=== PATIENT | female | born 1940 | race Caucasian/White ===

== ENCOUNTER 2020-12-05 03:57 | Inpatient (IN) | payer MEDICARE ==
[2020-12-05] MEDS ORDERED: Norepinephrine 8 MG/0.9% NS 250 ML ONE (04:48)
[2020-12-05] MEDS ORDERED: Protamine Sulfate 50 MG/5 ML VIAL ONE (05:10)
[2020-12-05] MEDS ORDERED: Heparin 5,000 UNITS/ML VIAL ONE (05:10)
[2020-12-05] MEDS ORDERED: Bupivacaine PF 0.5% 30 ML VIAL ONE (05:10)
[2020-12-05] MEDS ORDERED: EPINEPHrine 1 MG/ML AMP ONE (05:10)
[2020-12-05] MEDS ORDERED: Fentanyl 100 MCG/2 ML VIAL ONE ×2 (05:26→08:15)
[2020-12-05] MEDS ORDERED: Calcium Chloride 1 GM/10 ML Abboject SYRINGE ONE (05:26)
[2020-12-05] MEDS ORDERED: Norepinephrine 4 MG/4 ML VIAL ONE (05:26)
[2020-12-05] MEDS ORDERED: Phenylephrine 10 MG/ML VIAL ONE (05:26)
[2020-12-05] MEDS ORDERED: Rocuronium Bromide 10 MG/ML (10ML VIAL) ONE (05:37)
[2020-12-05] MEDS ORDERED: Labetalol HCl 100 MG/20 ML VIAL ONE ×2 (05:37→07:13)
[2020-12-05] MEDS ORDERED: Lidocaine 1% PF 5 ML VIAL ONE (05:37)
[2020-12-05] MEDS ORDERED: Levofloxacin 500 mg/D5W 100 ml Premix Bag ONE (05:53)
[2020-12-05] MEDS ORDERED: Sodium Bicarb 50 MEQ/50 ML Abboject 8.4% SYRINGE ONE (06:06)
[2020-12-05] MEDS ORDERED: SUGAMMADEX SODIUM 200 MG/2 ML VIAL ONE (06:46)
[2020-12-05] MEDS ORDERED: Lactated Ringer's 1,000 ML IV SCH (07:15)
[2020-12-05] MEDS ORDERED: Ondansetron PF 4 MG/2 ML Vial ONE ×2 (07:20→08:01)
[2020-12-05] MEDS ORDERED: hydrALAZINE 20 MG/ML VIAL SLOW IVP PRN (07:30)
[2020-12-05] MEDS ORDERED: hydrALAZINE 20 MG/ML VIAL ONE (07:30)
[2020-12-05] MEDS ORDERED: Sodium Chloride 0.9% 10 ML ONE (07:31)
[2020-12-05] MEDS ORDERED: Carvedilol 6.25 MG TAB PO SCH (08:00)
[2020-12-05 08:07] LABS: Hemoglobin 11.1 g/dL (12.0-16.0); Mean Corpuscular HGB CONC 33.8 g/dL (32.0-36.0); Mean Corpuscular Hemoglobin 30.8 pg (27.0-31.0); Mean Corpuscular Volume 91.3 fL (78.0-98.0); Platelet Count 159 thou/uL (130-400); RBC Distribution Width 14.6 % (11.5-14.5); Red Blood Cell (RBC) Count 3.61 mill/uL (4.20-5.40); White Blood Cell (WBC) Count 17.3 thou/uL (4.8-10.8)
[2020-12-05 08:18] LABS: INR-International Normal Ratio 1.7; PTT 35.6 sec (22.9-36.1); Prothrombin Time 19.8 sec (12.0-14.7)
[2020-12-05 08:25] LABS: Anion Gap 17 mmol/L (10-20); Anisocytosis SLIGHT = 6-15 cells (100X) (0-5/hpf); BUN (Urea Nitrogen) 28 mg/dL (9.8-20.1); Band 2 % (5-11); Calc. Creatinine Clearance 0 mL/min (70-130); Calcium 6.7 mg/dL (7.8-10.44); Carbon Dioxide 15 mmol/L (23-31); Chloride 112 mmol/L (98-107); Glucose 179 mg/dL (83-110); Large Platelets SLIGHT; Lymphocytes 8 % (21-51); MDiff Complete? YES; Monocytes 6 % (0-10); Neutrophil 84 % (42-75); Platelet Morphology Comment Appears Adequate; Potassium 4.3 mmol/L (3.5-5.1); Sodium 140 mmol/L (136-145); Vacuoles SLIGHT
[2020-12-05] MEDS ORDERED: Ketorolac Tromethamine 30 MG/ML VIAL ONE (08:54)
[2020-12-05] MEDS ORDERED: Lisinopril 20 MG TAB PO SCH ×2 (09:00)
[2020-12-05] MEDS ORDERED: Ondansetron PF 4 MG/2 ML Vial IVP PRN (09:41)
[2020-12-05] MEDS ORDERED: Aspirin 81 mg Enteric Coated Tablet PO SCH (10:00)
[2020-12-05] MEDS ORDERED: Citalopram 20 MG TAB PO SCH (10:00)
[2020-12-05] MEDS ORDERED: Polyethylene Glycol 3350 17 GM Packet PO SCH (10:00)
[2020-12-05] MEDS ORDERED: Carvedilol 3.125 MG TAB PO SCH ×2 (10:00→17:00)
[2020-12-05] MEDS ORDERED: Levothyroxine Sodium 75 MCG TAB PO SCH (10:00)
[2020-12-05 11:08] LABS: Hemoglobin 11.5 g/dL (12.0-16.0); Platelet Count 73 thou/uL (130-400)
[2020-12-05] MEDS: Acetaminophen 325 MG TAB PO PRN (11:12)
[2020-12-05 12:41] LABS: Hemoglobin 11.8 g/dL (12.0-16.0); Platelet Count 176 thou/uL (130-400)
[2020-12-05] MEDS: Lactated Ringer's 1,000 ML IV SCH (18:12)
[2020-12-05 19:32] LABS: Hemoglobin 9.3 g/dL (12.0-16.0); Platelet Count 183 thou/uL (130-400)
[2020-12-05] MEDS: Atorvastatin Calcium 40 MG TAB PO SCH (21:27)
[2020-12-06 04:59] LABS: Band 7 % (5-11); Lymphocytes 5 % (21-51); MDiff Complete? YES; Mean Corpuscular HGB CONC 35.4 g/dL (32.0-36.0); Mean Corpuscular Hemoglobin 31.3 pg (27.0-31.0); Mean Corpuscular Volume 88.4 fL (78.0-98.0); Mean Platelet Volume 9.3 fL (7.4-10.4); Monocytes 11 % (0-10); Neutrophil 77 % (42-75); Platelet Count 169 thou/uL (130-400); Platelet Morphology Comment Appears Adequate; RBC Distribution Width 17.2 % (11.5-14.5)
[2020-12-06 05:03] LABS: Anion Gap 15 mmol/L (10-20); BUN (Urea Nitrogen) 32 mg/dL (9.8-20.1); Calc. Creatinine Clearance 22 mL/min (70-130); Calcium 6.9 mg/dL (7.8-10.44); Carbon Dioxide 15 mmol/L (23-31); Chloride 109 mmol/L (98-107); Glucose 77 mg/dL (83-110); Potassium 3.9 mmol/L (3.5-5.1); Sodium 135 mmol/L (136-145)
[2020-12-06] MEDS: Levothyroxine Sodium 75 MCG TAB PO SCH (05:11)
[2020-12-06] MEDS ORDERED: TICAGRELOR 90 MG TABLET PO SCH ×2 (09:00→21:00)
[2020-12-06] MEDS: Citalopram 20 MG TAB PO SCH (09:02)
[2020-12-06] MEDS: Furosemide 40 MG TAB PO SCH (09:02)
[2020-12-06] MEDS: Carvedilol 3.125 MG TAB PO SCH ×2 (09:03→18:32)
[2020-12-06] MEDS: Aspirin 81 mg Enteric Coated Tablet PO SCH (09:03)
[2020-12-06] MEDS: Polyethylene Glycol 3350 17 GM Packet PO SCH (09:04)
[2020-12-06] MEDS: Clopidogrel Bisulfate 75 MG TAB PO SCH (09:09)
[2020-12-06] MEDS: BEER 1 CAN PO SCH (10:31)
[2020-12-06 17:19] LABS: Hemoglobin 9.4 g/dL (12.0-16.0); Platelet Count 173 thou/uL (130-400)
[2020-12-06] MEDS: Lactated Ringer's 1,000 ML IV SCH (18:32)
[2020-12-06] MEDS: Mometasone 100 MCG/PUFF (1 INHALER) INH SCH (18:33)
[2020-12-06] MEDS: Atorvastatin Calcium 40 MG TAB PO SCH (20:32)
[2020-12-07 04:50] LABS: Anion Gap 9 mmol/L (10-20); BUN (Urea Nitrogen) 23 mg/dL (9.8-20.1); Calc. Creatinine Clearance 30 mL/min (70-130); Calcium 7.5 mg/dL (7.8-10.44); Carbon Dioxide 24 mmol/L (23-31); Chloride 106 mmol/L (98-107); Glucose 78 mg/dL (83-110); Potassium 3.7 mmol/L (3.5-5.1); Sodium 135 mmol/L (136-145)
[2020-12-07] MEDS: Levothyroxine Sodium 75 MCG TAB PO SCH (05:14)
[2020-12-07 05:20] LABS: Band 4 % (5-11); Hemoglobin 9.4 g/dL (12.0-16.0); Lymphocytes 5 % (21-51); MDiff Complete? YES; Mean Corpuscular Hemoglobin 30.5 pg (27.0-31.0); Mean Corpuscular Volume 89.5 fL (78.0-98.0); Monocytes 9 % (0-10); Neutrophil 81 % (42-75); Platelet Count 189 thou/uL (130-400); Platelet Morphology Comment Appears Adequate; RBC Distribution Width 17.4 % (11.5-14.5); RBC Morphology Normal; Reactive Lymphocytes 1 % (0-10); Red Blood Cell (RBC) Count 3.09 mill/uL (4.20-5.40); White Blood Cell (WBC) Count 27.7 thou/uL (4.8-10.8)
[2020-12-07] MEDS: HYDROcodone/Acetaminophen 5/325 mg Tablet PO PRN (09:05)
[2020-12-07] MEDS: Carvedilol 6.25 MG TAB PO SCH ×2 (09:05→16:07)
[2020-12-07] MEDS: Aspirin 81 mg Enteric Coated Tablet PO SCH (09:05)
[2020-12-07] MEDS: Furosemide 40 MG TAB PO SCH (09:05)
[2020-12-07] MEDS: Lisinopril 5 MG TAB PO SCH ×2 (09:05→20:24)
[2020-12-07] MEDS: Citalopram 20 MG TAB PO SCH (09:05)
[2020-12-07] MEDS: Polyethylene Glycol 3350 17 GM Packet PO SCH (09:07)
[2020-12-07] MEDS: Clopidogrel Bisulfate 75 MG TAB PO SCH (09:07)
[2020-12-07] MEDS: BEER 1 CAN PO SCH ×2 (09:08→15:50)
[2020-12-07] MEDS: Mometasone 100 MCG/PUFF (1 INHALER) INH SCH ×2 (11:11→19:39)
[2020-12-07 16:06] LABS: Bilirubin Negative (Negative); Blood, Urine 2+ (Negative); Clarity Turbid (Clear); Glucose, Urine (Dipstick) Normal (Negative); Ketone, Urine Negative (Negative); Leukocyte 500 Leu/uL (Negative); Nitrite Negative (Negative); Protein, Urine (Dipstick) 10 mg/dL (Neg-Trace); Renal Epithelial 0-3 HPF (None Seen); Specific Gravity, Urine 1.013 (1.002-1.036); Urobilinogen Normal mg/dL (Less than 2)
[2020-12-07 16:14] LABS: Bacteria/HPF 1+ HPF (None Seen); Squamous Epithelial 0-3 HPF (0-3); WBC/HPF 21-50 HPF (0-3)
[2020-12-07 16:16] LABS: Urine Culture Reflex Yes Yes
[2020-12-07] MEDS: Atorvastatin Calcium 40 MG TAB PO SCH (20:24)
[2020-12-07] MEDS: Simethicone Chewable 80 MG TAB PO PRN (21:44)
[2020-12-08] MEDS: Levothyroxine Sodium 75 MCG TAB PO SCH (06:04)
[2020-12-08] MEDS: Mometasone 100 MCG/PUFF (1 INHALER) INH SCH ×2 (08:16→19:02)
[2020-12-08 08:35] LABS: Hemoglobin 8.8 g/dL (12.0-16.0); Mean Corpuscular HGB CONC 34.2 g/dL (32.0-36.0); Mean Corpuscular Hemoglobin 31.1 pg (27.0-31.0); Mean Platelet Volume 9.2 fL (7.4-10.4); Platelet Count 212 thou/uL (130-400); Red Blood Cell (RBC) Count 2.83 mill/uL (4.20-5.40)
[2020-12-08 08:50] LABS: Anion Gap 12 mmol/L (10-20); BUN (Urea Nitrogen) 19 mg/dL (9.8-20.1); Calc. Creatinine Clearance 35 mL/min (70-130); Calcium 7.6 mg/dL (7.8-10.44); Carbon Dioxide 22 mmol/L (23-31); Chloride 102 mmol/L (98-107); Potassium 3.5 mmol/L (3.5-5.1); Sodium 132 mmol/L (136-145)
[2020-12-08 08:53] LABS: Glucose 53 mg/dL (83-110)
[2020-12-08] MEDS: Clopidogrel Bisulfate 75 MG TAB PO SCH (08:59)
[2020-12-08] MEDS: Aspirin 81 mg Enteric Coated Tablet PO SCH (08:59)
[2020-12-08] MEDS: Carvedilol 6.25 MG TAB PO SCH ×2 (08:59→17:43)
[2020-12-08] MEDS: Lisinopril 5 MG TAB PO SCH ×2 (09:00→20:47)
[2020-12-08] MEDS: cefTRIAXone\\ROCEPHIN 1 GM in Sodium Chloride 0.9% 100 ML IVPB SCH (09:00)
[2020-12-08] MEDS: Citalopram 20 MG TAB PO SCH (09:00)
[2020-12-08] MEDS: Furosemide 40 MG TAB PO SCH (09:00)
[2020-12-08] MEDS: BEER 1 CAN PO SCH (09:01)
[2020-12-08] MEDS: Polyethylene Glycol 3350 17 GM Packet PO SCH (09:01)
[2020-12-08] MEDS ORDERED: Carvedilol 6.25 MG TAB PO SCH (09:45)
[2020-12-08] MEDS: Simethicone Chewable 80 MG TAB PO PRN (10:11)
[2020-12-08 11:15] LABS: Anisocytosis SLIGHT = 6-15 cells (100X) (0-5/hpf); Band 12 % (5-11); Lymphocytes 9 % (21-51); MDiff Complete? YES; Monocytes 11 % (0-10); Neutrophil 68 % (42-75); Platelet Morphology Comment Appears Adequate; Polychromasia SLIGHT = 2-3 cells (100X) (0-2/hpf)
[2020-12-08] MEDS: Acetaminophen 325 MG TAB PO PRN (17:47)
[2020-12-08] MEDS: Atorvastatin Calcium 40 MG TAB PO SCH (20:47)
[2020-12-09 04:58] LABS: #Eosinphils 0.1 thou/uL (0.0-0.7); #Lymphocytes 1.7 thou/uL (1.20-3.40); #Monocytes 1.7 thou/uL (0.11-0.59); #Neutrophils 18.2 thou/uL (1.40-6.50); %Eosinophils 0.7 % (0.0-10.0); %Lymphocytes 7.6 % (21.0-51.0); %Monocytes 7.8 % (0.0-10.0); %Neutrophils 83.9 % (42.0-75.0); Hemoglobin 9.8 g/dL (12.0-16.0); Mean Corpuscular HGB CONC 33.5 g/dL (32.0-36.0); Mean Corpuscular Hemoglobin 30.9 pg (27.0-31.0); Mean Corpuscular Volume 92.5 fL (78.0-98.0); Mean Platelet Volume 9.2 fL (7.4-10.4); Platelet Count 216 thou/uL (130-400); RBC Distribution Width 17.2 % (11.5-14.5); Red Blood Cell (RBC) Count 3.17 mill/uL (4.20-5.40); White Blood Cell (WBC) Count 21.7 thou/uL (4.8-10.8)
[2020-12-09 05:22] LABS: Anion Gap 11 mmol/L (10-20); BUN (Urea Nitrogen) 20 mg/dL (9.8-20.1); Calc. Creatinine Clearance 34 mL/min (70-130); Calcium 7.9 mg/dL (7.8-10.44); Carbon Dioxide 24 mmol/L (23-31); Chloride 101 mmol/L (98-107); Glucose 70 mg/dL (83-110); Potassium 3.2 mmol/L (3.5-5.1); Sodium 133 mmol/L (136-145)
[2020-12-09] MEDS: Levothyroxine Sodium 75 MCG TAB PO SCH (05:23)
[2020-12-09] MEDS: Mometasone 100 MCG/PUFF (1 INHALER) INH SCH (07:40)
[2020-12-09] MEDS: HYDROcodone/Acetaminophen 5/325 mg Tablet PO PRN (08:55)
[2020-12-09] MEDS: Citalopram 20 MG TAB PO SCH (08:58)
[2020-12-09] MEDS: Carvedilol 6.25 MG TAB PO SCH (09:00)
[2020-12-09] MEDS: Clopidogrel Bisulfate 75 MG TAB PO SCH (09:04)
[2020-12-09] MEDS: Furosemide 40 MG TAB PO SCH (09:04)
[2020-12-09] MEDS: Lisinopril 5 MG TAB PO SCH (09:04)
[2020-12-09] MEDS: cefTRIAXone\\ROCEPHIN 1 GM in Sodium Chloride 0.9% 100 ML IVPB SCH (09:05)
[2020-12-09] MEDS: Aspirin 81 mg Enteric Coated Tablet PO SCH (09:06)
[2020-12-09] MEDS: Polyethylene Glycol 3350 17 GM Packet PO SCH (09:07)
[2020-12-09] MEDS: BEER 1 CAN PO SCH (12:04)
[2020-12-09 13:05] VITALS: BMI 23.8
[2020-12-09] MEDS ORDERED: Cefdinir 300 MG CAP PO SCH ×2 (13:30→21:00)
[2020-12-09] MEDS ORDERED: Potassium Chloride 20 MEQ TAB PO SCH (14:30)
[2020-12-09 16:05] VITALS: BP 129/56; TEMP 99.1
== END 2020-12-09 16:10 | disposition home or self-care (01) | DRG 907 ==
LOC: ERS 03:57 → 2NO 09:01
PROVIDERS: ADMIT Thoracic Surgery (Cardiothoracic Vascular Surgery); ATTEND Thoracic Surgery (Cardiothoracic Vascular Surgery)
PROC: 04QK0ZZ Repair Right Femoral Artery, Open Approach (ICD-10-PCS; principal; 2020-12-05)
PROC: 04CK0ZZ Extirpation of Matter from Right Femoral Artery, Open Approach (ICD-10-PCS; 2020-12-05)
PROC: 30233N1 Transfusion of Nonautologous Red Blood Cells into Peripheral Vein, Percutaneous Approach (ICD-10-PCS; 2020-12-05)
PROC: 3E033XZ Introduction of Vasopressor into Peripheral Vein, Percutaneous Approach (ICD-10-PCS; 2020-12-05)
DX: I97.610 Postprocedural hemorrhage of a circulatory system organ or structure following a cardiac catheterization (principal); R57.8 Other shock; I50.22 Chronic systolic (congestive) heart failure; I13.0 Hypertensive heart and chronic kidney disease with heart failure and stage 1 through stage 4 chronic kidney disease, or unspecified chronic kidney disease; N17.9 Acute kidney failure, unspecified; D62 Acute posthemorrhagic anemia; N39.0 Urinary tract infection, site not specified; J44.9 Chronic obstructive pulmonary disease, unspecified; E78.5 Hyperlipidemia, unspecified; E03.9 Hypothyroidism, unspecified; I72.8 Aneurysm of other specified arteries; F32.9 Major depressive disorder, single episode, unspecified; I25.10 Atherosclerotic heart disease of native coronary artery without angina pectoris; N18.30 Chronic kidney disease, stage 3 unspecified; Y83.8 Other surgical procedures as the cause of abnormal reaction of the patient, or of later complication, without mention of misadventure at the time of the procedure; Z90.710 Acquired absence of both cervix and uterus; Z98.890 Other specified postprocedural states; Z88.0 Allergy status to penicillin; Z88.2 Allergy status to sulfonamides; Z95.5 Presence of coronary angioplasty implant and graft; Z87.891 Personal history of nicotine dependence; Z79.82 Long term (current) use of aspirin; Z79.02 Long term (current) use of antithrombotics/antiplatelets; Z79.899 Other long term (current) drug therapy
CPT/HCPCS: 36415; 36416; 36430; 80048; 81001; 85025; 86850; 86900; 86901; 87077; 87086; 87186; J0171; J0360; J0696; J1644; J1885; J1956; J2370; J2405; J2720; J3010; J3490; J7120; P9016; S0020